=== PATIENT | female | born 2000 | race Hispanic/Latino ===

== ENCOUNTER 2022-05-04 20:16 | Emergency (ER) | payer OTHER ==
--- OUTSIDE RECORDS SUMMARY | 2022-05-04 20:19 | XMS REPORT | Continuity of Care Document ---
:2000 Author Organization [facility] t Address [address] [place] [address] Care Team Providers Name Role Phone Unavailable Unavailable Unavailable Payers Payer Name Policy Type Policy Number Effective Date Expiration Date S ource Problems This patient has no known problems. Allergies, Adverse Reactions, Alerts Allergy Allergy Status Severity Reaction(s) Onset Inactive Treating Comm ents Source Name Type Date Date Clinician No Known DA Active U 2017-08 [facility] All[facility]ie 0-16 [facility] Medications This patient has no known medications. Procedures This patient has no known procedures. Results This patient has no known results.
--- NOTE | 2022-05-04 21:26 | EDPHYS ---
Physician Documentation [facility] Name: Maricarmen Romero Age: 22 yrs Sex: Female : 2000 Arrival Date: 05/04/2022 Time: 20:20 Bed 10 Private MD: ED Physician Jasmine Osborne HPI: 05/04 20:46 This 22 yrs old Female presents to ER via Ambulatory with complaints of Cyst. jmm 20:46 the patient presents with a swollen area of the buttocks. Onset: The symptoms/episode jmm began/occurred gradually, 3 day(s) ago. Possible cause(s): unknown. Associated signs and symptoms: Pertinent positives: drainage, swelling. This is a 22 year old female with a history of previous pilonidal cysts that presents to the ED with complaints of pain to her buttock. Noticed drainage in the shower. Denies fever. Currently on abx. . Historical: - PMHx: 20:29 gestational diabetes; tw5 - Immunization history:: Flu vaccine is not up to date. - Social history:: Smoking status: Patient denies any tobacco usage or history of. ROS: 20:46 Constitutional: Negative for fever, chills, and weight loss, Cardiovascular: Negative jmm for chest pain, palpitations, and edema, Respiratory: Negative for shortness of breath, cough, wheezing, and pleuritic chest pain. 20:46 Skin: Positive for swelling. 20:46 All other systems are negative. Exam: 20:46 Constitutional: This is a well developed, well nourished patient who is awake, alert, jmm and in no acute distress. Head/Face: atraumatic. Eyes: EOMI, no conjunctival erythema appreciated ENT: Moist Mucus Membranes Neck: Trachea midline, Supple Chest/axilla: Normal chest wall appearance and motion. Cardiovascular: Regular rate and rhythm. No edema appreciated Respiratory: Normal respirations, no respiratory distress appreciated Abdomen/GI: Non distended Back: Normal ROM 20:46 Skin: pilonidal cyst noted with fluctuance to the gluteal cleft of the left glute. 20:46 Neuro: Orientation: is normal, Mentation: is normal, Memory: is normal. 20:46 Psych: Behavior/mood is pleasant, cooperative. Vital Signs: 20:27 BP 126 / 80; Pulse 104; Resp 18; Temp 98.4; Pulse Ox 96% on R/A; Weight 81.65 kg; tw5 Height 5 ft. 0 in. (152.40 cm); Pain 3/10; 20:27 Body Mass Index 35.15 (81.65 kg, 152.40 cm) tw5 Procedures: 21:24 I \T\ D: Incision and drainage was performed for an abscess of the pilonidal cyst Prepped [facility] with Betadine, Anesthetized with 10 ml's 1% Lidocaine. Incised with #11 blade. Drained small amount purulent fluid. bloody fluid. Packed with iodoform gauze, Dressing: sterile 4x4 gauze, the patient tolerated the procedure well. MDM: 20:46 Patient medically screened. [facility] 21:25 Data reviewed: vital signs, nurses notes. Counseling: I had a detailed discussion with dominic the patient and/or guardian regarding: the historical points, exam findings, and any diagnostic results supporting the discharge/admit diagnosis, the need for outpatient follow up, to return to the emergency department if symptoms worsen or persist or if there are any questions or concerns that arise at home. Administered Medications: No medications were administered Disposition Summary: 05/04/22 21:25 Discharge Ordered Location: Home [facility] Condition: Stable [facility] Diagnosis - Pilonidal cyst with abscess [facility] Followup: [facility] - With: Samir Rowe MD - When: 2 - 3 days - Reason: Recheck today's complaints, Continuance of care, Re-evaluation by your physician Discharge Instructions: - Discharge Summary Sheet [facility] - Pilonidal Cyst [facility] - Pilonidal Cyst Drainage, Care After [facility] Forms: - Medication Reconciliation Form [facility] - Thank You Letter [facility] - Antibiotic Education [facility] - Prescription Opioid Use [facility] Signatures: Jeovany Villarreal PA PA Tri Licea tw5
--- NOTE | 2022-05-04 21:26 | ER ---
Nurse's Notes [facility] Name: Maricarmen Romero Age: 22 yrs Sex: Female : 2000 Arrival Date: 05/04/2022 Time: 20:20 Bed 10 Private MD: Diagnosis: Pilonidal cyst with abscess Presentation: 05/04 20:27 Chief complaint: Patient states: "I had a cyst that burst in the shower and it hurts tw5 really bad right now.". Coronavirus screen: Vaccine status: Patient reports being unvaccinated. Ebola Screen: Patient negative for fever greater than or equal to 101.5 degrees Fahrenheit, and additional compatible Ebola Virus Disease symptoms Patient denies exposure to infectious person. Patient denies travel to an Ebola-affected area in the 21 days before illness onset. Initial Sepsis Screen: Does the patient meet any 2 criteria? No. Patient's initial sepsis screen is negative. Does the patient have a suspected source of infection? No. Patient's initial sepsis screen is negative. Risk Assessment: Do you want to hurt yourself or someone else? Patient reports no desire to harm self or others. Onset of symptoms was May 04, 2022. 20:27 Method Of Arrival: Ambulatory tw5 20:27 Acuity: AVINASH 4 tw5 Triage Assessment: 20:29 General: Appears uncomfortable, Behavior is calm, cooperative, appropriate for age. tw5 Pain: Complains of pain in gluteal cleft Pain currently is 6 out of 10 on a pain scale. Historical: - PMHx: 20:29 gestational diabetes; tw5 - Immunization history:: Flu vaccine is not up to date. - Social history:: Smoking status: Patient denies any tobacco usage or history of. Screenin:25 Abuse screen: Denies threats or abuse. Denies injuries from another. Nutritional hb screening: No deficits noted. Tuberculosis screening: No symptoms or risk factors identified. Fall Risk None identified. Assessment: 21:25 General: Appears in no apparent distress. Behavior is calm, cooperative. Pain: Pain hb currently is 3 out of 10 on a pain scale. Neuro: Level of Consciousness is awake, alert, obeys commands, Oriented to person, place, time, situation. Cardiovascular: Patient's skin is warm and dry. Respiratory: Respiratory effort is even, unlabored, Respiratory pattern is regular, symmetrical. Vital Signs: 20:27 BP 126 / 80; Pulse 104; Resp 18; Temp 98.4; Pulse Ox 96% on R/A; Weight 81.65 kg; tw5 Height 5 ft. 0 in. (152.40 cm); Pain 3/10; 20:27 Body Mass Index 35.15 (81.65 kg, 152.40 cm) tw5 ED Course: 20:20 Patient arrived in ED. dt4 20:22 Jeovany Villarreal PA is PHCP. [facility] 20:22 Jasmine Osborne MD is Attending Physician. [facility] 20:29 Triage completed. tw5 20:29 Arm band placed on. tw5 20:30 Tri Pride is Primary Nurse. tw5 21:25 Samir Rowe MD is Referral Physician. [facility] 21:25 Patient has correct armband on for positive identification. hb 21:34 No provider procedures requiring assistance completed. Patient did not have IV access hb during this emergency room visit. Administered Medications: No medications were administered Medication: 21:25 VIS not applicable for this client. hb Outcome: 21:25 Discharge ordered by . [facility] 21:34 Discharged to home ambulatory. hb 21:34 Condition: stable 21:34 Discharge instructions given to patient, Instructed on discharge instructions, follow up and referral plans. medication usage, Demonstrated understanding of instructions, follow-up care, medications. 21:34 Patient left the ED. hb Signatures: Jeovany Villarreal PA PA jmm Baxter, Heather, RN RN hb [employer] Pride tw5 Alexa Hernandez dt4
[2022-05-06 12:17] VITALS: BP 126/80; TEMP 98.4; O2SAT 96
== END 2022-05-04 21:34 | disposition home or self-care (01) ==
LOC: ER 20:16
PROC: 0H98XZZ Drainage of Buttock Skin, External Approach (ICD-10-PCS; principal; 2022-05-04)
DX: L05.01 Pilonidal cyst with abscess (principal)
CPT/HCPCS: 99281